=== PATIENT | male | born 1990 | race Caucasian/White ===

== ENCOUNTER 2018-09-05 15:50 | Emergency (ER) | payer MEDICAID ==
[2018-09-05 16:24] VITALS: BMI 29.6
[2018-09-05 16:25] VITALS: BP 145/105; PULSE 105; RESP 18; TEMP 98.3; O2SAT 98
--- NOTE | 2018-09-05 17:15 | ED PDOC ---
Arrival/HPI - General Chief Complaint: Allergic Reaction Time Seen by Provider: 09/05/18 16:06 Historian: Patient - History of Present Illness Narrative History of Present Illness (Text): 09/05/18 17:17 28-year-old male, presents the emergency room complaining of a scattered red itchy rash mostly on his back his chest and in his arms for the past month. Patient states that he had a similar rash 2 months ago which she saw his PMD for give him a prescription for dexamethasone pills which she took and completed, states that his rash improved however his rash resumed again 1 month ago. He was recently seen at an emergency room in [place] a few days ago, he was prescribed Vistaril which she has been taking without improvement of the rash. He was referred to see a hoop cutter however needed a referral. Otherwise he reports no fever, chills, URI, rash, shortness of breath, chest pain, facial or tongue swelling, changes in medications, taking any new medications, eating anything new, changes in soaps or lotions. Reports taking Vistaril this morning. Past Medical History - Infectious Disease Hx of Infectious Diseases: None - Cardiac Hx Cardiac Disorders: No - Pulmonary Hx Respiratory Disorders: No - Neurological Hx Neurological Disorder: No - HEENT Hx HEENT Disorder: No - Renal Hx Renal Disorder: No - Endocrine/Metabolic Hx Endocrine Disorders: Yes Hx Diabetes Mellitus Type 2: Yes - Hematological/Oncological Hx Blood Disorders: Yes Hx Cancer: Yes (sarcoma) Hx Chemotherapy: Yes (4-5 years ago) - Integumentary Hx Dermatological Disorder: No - Musculoskeletal/Rheumatological Hx Musculoskeletal Disorders: No - Gastrointestinal Hx Gastrointestinal Disorders: No - Genitourinary/Gynecological Hx Genitourinary Disorders: No - Psychiatric Hx Psychophysiologic Disorder: No Hx Substance Use: No - Surgical History Other/Comment: leg surgery. stomach surgery Family/Social History Family/Social History: No Known Family HX Smoking Status: Never Smoked Hx Alcohol Use: No Hx Substance Use: No Allergies/Home Meds Allergies/Adverse Reactions: Allergies vancomycin Allergy (Verified 09/05/18 16:24) RASH Home Medications: Home Meds Medication Instructions Recorded Confirmed MetFORMIN [glucOPHAGE] 0 mg PO DAILY 06/02/16 06/02/16 Review of Systems - Review of Systems Constitutional: absent: Fatigue, Fevers ENT: absent: Sore Throat, Rhinorrhea Respiratory: absent: SOB, Cough Cardiovascular: absent: Chest Pain, Palpitations Gastrointestinal: absent: Abdominal Pain, Nausea, Vomiting Musculoskeletal: absent: Arthralgias, Back Pain, Neck Pain Skin: Rash, Pruritis, Skin Lesions Neurological: absent: Headache, Dizziness Physical Exam Vital Signs Temp Pulse Resp BP Pulse Ox 09/05/18 16:24 98.3 F 105 H 18 145/105 H 98 Temperature: Afebrile Blood Pressure: Hypertensive Pulse: Tachycardic Respiratory Rate: Normal Appearance: Positive for: Well-Appearing, Non-Toxic, Comfortable Pain Distress: None Mental Status: Positive for: Alert and Oriented X 3 - Systems Exam Head: Present: Atraumatic, Normocephalic Pupils: Present: PERRL Extroacular Muscles: Present: EOMI Conjunctiva: Present: Normal Mouth: Present: Moist Mucous Membranes Pharnyx: Present: Normal. No: ERYTHEMA, EXUDATE Neck: Present: Normal Range of Motion. No: Meningeal Signs, Lymphadenopathy Respiratory/Chest: Present: Clear to Auscultation, Good Air Exchange. No: Respiratory Distress, Accessory Muscle Use Cardiovascular: Present: Regular Rate and Rhythm, Normal S1, S2. No: Murmurs Abdomen: No: Tenderness, Distention, Peritoneal Signs Back: Present: Normal Inspection Upper Extremity: Present: Normal Inspection. No: Cyanosis, Edema Lower Extremity: Present: Normal Inspection. No: Edema Neurological: Present: GCS=15, CN II-XII Intact, Speech Normal Skin: Present: Warm, Dry, Rashes (+erythematous raised oval shaped lesions scattered throughout the patient's back, chest, abdomen and b/l upper extremities, noted in a X-mas tree distribution), Normal Color Psychiatric: Present: Alert, Oriented x 3, Normal Insight, Normal Concentration Medical Decision Making ED Course and Treatment: 09/05/18 17:20 Patient medicated with Solu-Medrol IM. 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 Advised to follow up with dermatology in 1-2 days without fail. Advised to take medication as prescribed. Return to the emergency room at any time for any new or worsening symptoms. Patient states he fully agrees with and understands discharge instructions. States that he agrees with the plan and disposition. Verbalized and repeated discharge instructions and plan. I have given the patient opportunity to ask any additional questions. - PA / GENERAL WAREHOUSE WORKER / Resident Statement MD/DO has reviewed & agrees with the documentation as recorded. Disposition/Present on Arrival - Present on Arrival Any Indicators Present on Arrival: No History of DVT/PE: No History of Uncontrolled Diabetes: No Urinary Catheter: No History of Decub. Ulcer: No History Surgical Site Infection Following: None - Disposition Have Diagnosis and Disposition been Completed?: Yes Diagnosis: Rash, Pityriasis rosea Disposition: HOME/ ROUTINE Disposition Time: 17:15 Patient Plan: Discharge Condition: STABLE Discharge Instructions (ExitCare): Pityriasis Rosea, Skin Rash (DC) Additional Instructions: Thank you for letting us take care of you today. You were treated for rash, consider pityriasis rosacea. The emergency medical care you received today was directed at your acute symptoms. If you were prescribed any medication, please fill it and take as directed. It may take several days for your symptoms to resolve. Return to the Emergency Department if your symptoms worsen, do not improve, or if you have any other problems. Please contact your doctor in 2 days for re-evaluation and follow up / or call one of the physicians/clinics you have been referred to that are listed on the Patient Visit Information form that is included in your discharge packet. Bring any paperwork you were given at discharge with you along with any medications you are taking to your follow up visit. Our treatment cannot replace ongoing medical care by a primary care provider (PCP) outside of the emergency department. Thank you for allowing the [facility] team to be part of your care today. Prescriptions: Cetirizine HCl [Zyrtec] 10 mg PO DAILY #30 capsule Methylprednisolone [Medrol Dose Pack (21 tabs)] 4 mg PO DAILY #21 mg Referrals: Tana Silverio MD [Staff Provider] - Follow up with primary Forms: [employer] (Bangladeshi), WORK NOTE
== END 2018-09-05 17:34 | disposition home or self-care (01) ==
LOC: ED 15:50
DX: L42 Pityriasis rosea (principal)
CPT/HCPCS: 96372; 99282; J2930